=== PATIENT | female | born 1980 | race Caucasian/White ===

== ENCOUNTER 2017-06-13 08:53 | Day surgery (SDC) | payer OTHER ==
[2017-06-13 10:06] LABS: ADD MAN DIFF? NO
[2017-06-13 10:10] LABS: WHITE BLOOD COUNT 4.1 10^3/ul (4.8-10.8)
[2017-06-13 10:10] LABS: EOSINOPHILS # 0.1 10^3/ul (0.0-0.5); EOSINOPHILS % 1.7 % (0.0-7.0); HEMATOCRIT 37.4 % (37.0-47.0); HEMOGLOBIN 12.4 g/dl (12.0-16.0); LYMPHOCYTES # 1.4 10^3/ul (0.8-2.9); MEAN CORPUSCULAR HEMOGLOBIN 29.8 pg (29.0-33.0); MEAN CORPUSCULAR HGB CONC 33.2 g/dl (32.0-37.0); MEAN CORPUSCULAR VOLUME 89.9 fl (82.0-101.0); MONOCYTE # 0.3 10^3/ul (0.3-0.9); MONOCYTES % 7.8 % (0.0-11.0); NEUTROPHIL # 2.2 10^3/ul (1.6-7.5); NEUTROPHILS % 54.3 % (39.0-77.0); PLATELET COUNT 304 10^3/UL (140-415); RED BLOOD COUNT 4.16 10^6/ul (4.20-5.40); RED CELL DISTRIBUTION WIDTH 15.2 % (11.5-14.5)
[2017-06-13 10:42] LABS: HOLD TRANSMISSIONS 1
[2017-06-13] MEDS ORDERED: FENTAnyl 50 MCG/ML VIAL (11:00)
[2017-06-13] MEDS ORDERED: MIDAZOLAM 1 MG/ML 2 ML INJ (11:00)
[2017-06-13] MEDS ORDERED: PROPOFOL 20 ML (11:30)
[2017-06-13] MEDS ORDERED: LIDOCAINE 2% (SDV) 5 ML INJ (11:30)
[2017-06-13] MEDS ORDERED: CEFAZOLIN 1 GM INJ (11:30)
[2017-06-13] MEDS ORDERED: KETOROLAC 30 MG INJ (11:31)
[2017-06-13] MEDS ORDERED: ONDANSETRON 4 MG INJ (11:31)
== END 2017-06-13 14:00 | disposition home or self-care (01) ==
LOC: SDS 08:53
DX: Z30.2 Encounter for sterilization (principal)
CPT/HCPCS: 58565; 84703; 85025; 86850; 86900; 86901